=== PATIENT | female | born 1945 | race African-American/Black ===

== ENCOUNTER 2021-04-19 22:56 | Inpatient (IN) ==
[2021-04-20] MEDS ORDERED: PIPERACILLIN/TAZOBACTAM 3,375 MG in SODIUM CHLORIDE 0.9% 100 ML IV STA (01:48)
[2021-04-20] MEDS ORDERED: methylPREDNISolone SOD SUC 125 MG/2 ML VIAL IV STA (01:48)
[2021-04-20 03:18] LABS: Basophils % 0.1 % (0.0-0.8); Immature Granulocytes % 1.4 %; Immature Granulocytes Absolute 0.12 #; Lymphocytes # 0.7 10*3/uL (1.4-4.0); Lymphocytes % 7.6 % (21.3-54.2); Mean Corpuscular HGB Conc 29.6 GM/DL (32-36); Mean Platelet Volume 11.1 FL (9.6-12.0); Monocytes % 18.2 % (1.7-12.7); NRBC # 0.04 10*3/uL; Neutrophils % 72.7 % (38.7-73.9); Platelet Count 140 T/CUMM (130-400); Red Blood Count 1.55 MC/CUMM (3.8-5.5); Red Cell Distribution Width 18.6 % (9.3-17.3); White Blood Count 8.8 T/CUMM (4-12)
[2021-04-20 03:21] LABS: Hematocrit 16.9 VOL% (35.7-47.0)
[2021-04-20 03:41] LABS: Albumin 2.9 G/DL (3.4-5.0); Bilirubin,Total 0.7 MG/DL (0.20-1.00); Calcium 7.9 MG/DL (8.5-10.1); Potassium 5.1 MMOL/L (3.5-5.1); Total Protein 6.2 G/DL (6.4-8.2)
[2021-04-20 03:43] LABS: Anisocytosis 2+; Hypochromasia 1+; Lymphocytes 9 % (20-55); Platelet Estimate Adequate; Segmented Neutrophils 70 % (50-85); Total Cells Counted 100
[2021-04-20] MEDS ORDERED: SODIUM CHLORIDE 0.9% 1,000 ML IV SCH (06:30)
[2021-04-20] MEDS ORDERED: DEXTROSE 50% 25 GM/50 ML VIAL IV PRN (06:33)
[2021-04-20] MEDS ORDERED: GLUCAGON 1 MG VIAL IM PRN (06:33)
[2021-04-20] MEDS ORDERED: ONDANSETRON 4 MG/2 ML VIAL IV PRN (06:34)
[2021-04-20] MEDS ORDERED: ACETAMINOPHEN 325 MG TABLET PO PRN (06:34)
[2021-04-20] MEDS ORDERED: SODIUM CHLORIDE 0.9% 1,000 ML IV PRN (06:35)
[2021-04-20 08:12] LABS: INR 1.2; PT Patient Result 13.2 SECS (10.5-12.0); Partial Thromboplastin Time 27.7 SECS (23.8-32.1)
[2021-04-20 08:15] LABS: % Iron Saturation 8.4 % (18-50)
[2021-04-20 08:34] LABS: Amorphous Crystals,Urine Few /HPF (Few); Bacteria,Urine Occasional /HPF (Few); Bilirubin,Urine Negative (Negative); Blood, Urine Small mg/dL (Negative); Glucose,Urine (UA) Negative (Negative); Ketones,Urine Negative (Negative); Nitrite,Urine Negative (Negative); Protein,Urine 30 MG/DL; RBC,Urine <1 /HPF (0-4); Urine Appearance CLEAR (Clear); Urine Color Yellow (Yellow); Urine Specific Gravity 1.012 (1.001-1.035); Urine Urobilinogen < 2.0 EU/DL (0.2-1.0)
[2021-04-20] MEDS: PANTOPRAZOLE 40 MG TABLET PO SCH (08:57)
[2021-04-20] MEDS: PIPERACILLIN/TAZOBACTAM 3,375 MG in SODIUM CHLORIDE 0.9% 100 ML IV SCH ×2 (12:11→21:21)
[2021-04-20] MEDS: GABAPENTIN 300 MG CAPSULE PO SCH (21:22)
[2021-04-21] MEDS: PIPERACILLIN/TAZOBACTAM 3,375 MG in SODIUM CHLORIDE 0.9% 100 ML IV SCH ×3 (07:09→21:04)
[2021-04-21] MEDS ORDERED: METOPROLOL TARTRATE 25 MG TABLET PO SCH (09:00)
[2021-04-21] MEDS: PANTOPRAZOLE 40 MG TABLET PO SCH (09:45)
[2021-04-21] MEDS: LOSARTAN 50 MG TABLET PO SCH (09:45)
[2021-04-21 12:21] LABS: Basophils % 0.1 % (0.0-0.8); Hematocrit 31.4 VOL% (35.7-47.0); Hemoglobin 9.5 GM/DL (12.0-16.0); Immature Granulocytes % 1.5 %; Immature Granulocytes Absolute 0.11 #; Lymphocytes # 0.4 10*3/uL (1.4-4.0); Lymphocytes % 5.1 % (21.3-54.2); Mean Corpuscular HGB Conc 30.3 GM/DL (32-36); Mean Corpuscular Volume 99.4 FL (87-102); Monocytes % 9.8 % (1.7-12.7); Neutrophils % 83.5 % (38.7-73.9); Platelet Count 143 T/CUMM (130-400); Red Blood Count 3.16 MC/CUMM (3.8-5.5); White Blood Count 7.5 T/CUMM (4-12)
[2021-04-21 12:36] LABS: Calcium 9.2 MG/DL (8.5-10.1); Osmolality,Calculated 297.3 MOS/KG (273-304)
[2021-04-21 12:51] LABS: Anisocytosis 2+; Platelet Estimate Adequate; Target Cells Few
[2021-04-21 12:52] LABS: Macrocytosis 1+; Tear Drop Cells Few
[2021-04-21] MEDS: amLODIPine 10 MG TABLET PO SCH (15:11)
[2021-04-21] MEDS: GABAPENTIN 300 MG CAPSULE PO SCH (21:03)
[2021-04-22] MEDS: PIPERACILLIN/TAZOBACTAM 3,375 MG in SODIUM CHLORIDE 0.9% 100 ML IV SCH (05:16)
[2021-04-22 07:06] LABS: Calcium 8.9 MG/DL (8.5-10.1); Osmolality,Calculated 298.8 MOS/KG (273-304); Potassium 4.5 MMOL/L (3.5-5.1)
[2021-04-22] MEDS ORDERED: HEPARIN LOCK FLUSH 500 UNIT/5 ML SYRINGE IV PRN (07:36)
[2021-04-22] MEDS: LOSARTAN 50 MG TABLET PO SCH (08:11)
[2021-04-22] MEDS: amLODIPine 10 MG TABLET PO SCH (08:11)
[2021-04-22] MEDS: PANTOPRAZOLE 40 MG TABLET PO SCH (08:11)
[2021-04-22] MEDS ORDERED: HEPARIN LOCK FLUSH 500 UNIT/5 ML SYRINGE IV SCH (09:00)
[2021-04-22 09:08] VITALS: BP 153/53
== END 2021-04-22 13:45 | disposition home or self-care (01) | DRG 194 ==
LOC: N.ED 22:56 → N.EDINP 04-20 06:31 → N.5E 04-20 13:22
PROVIDERS: ADMIT Internal Medicine; ATTEND Internal Medicine